=== PATIENT | male | born 1965 | race Caucasian/White ===

== ENCOUNTER 2016-05-25 08:24 | Emergency (ER) | payer MEDICAID, OTHER ==
[2016-05-25] MEDS ORDERED: PROPARACAINE HCL 0.5% 300 GTTS/BOT SOLN.DROP ONE (09:04)
[2016-05-25] MEDS ORDERED: IBUPROFEN 600 MG TABLET ONE (09:51)
[2016-05-25] MEDS ORDERED: PROCHLORPERAZINE 5 MG/ML 2 ML VIAL ONE (09:51)
[2016-05-25] MEDS ORDERED: ACETAMINOPHEN 325 MG TABLET ONE (09:51)
[2016-05-25] MEDS ORDERED: DEXAMETHASONE 4 MG TABLET ONE (09:51)
[2016-05-25] MEDS ORDERED: DIPHENHYDRAMINE HCL 50 MG/1 ML VIAL ONE (09:51)
== END 2016-05-25 10:26 | disposition home or self-care (01) ==
LOC: ED 08:24
DX: S05.02XA Injury of conjunctiva and corneal abrasion without foreign body, left eye, initial encounter (principal); I10 Essential (primary) hypertension; F17.220 Nicotine dependence, chewing tobacco, uncomplicated; W22.8XXA Striking against or struck by other objects, initial encounter; Y93.01 Activity, walking, marching and hiking; Y92.007 Garden or yard of unspecified non-institutional (private) residence as the place of occurrence of the external cause
CPT/HCPCS: 99283 ×2; 96372 ×2; J1200; J0780; A9270 ×4